=== PATIENT | female | born 1970 | race Caucasian/White ===

== ENCOUNTER → 2020-07-10 15:51 | Outpatient (BNVA) | payer MEDICARE, SELFPAY | PROVIDERS: Family Provider Family Medicine; PCP Family Medicine; Visit Provider Nurse Practitioner | DX: F41.8 Other specified anxiety disorders (principal); M54.16 Radiculopathy, lumbar region; E11.65 Type 2 diabetes mellitus with hyperglycemia; J30.1 Allergic rhinitis due to pollen; I10 Essential (primary) hypertension; H81.09 Meniere's disease, unspecified ear | CPT/HCPCS: 80053; 80061; 83036; 84443; 85025 ==

== ENCOUNTER 2020-09-30 17:42 | Emergency (ER) | payer MEDICARE, SELFPAY ==
[2020-09-30 17:49] VITALS: BP 227/119; PULSE 100; RESP 16; O2SAT 96; BMI 33.5
[2020-09-30 17:59] VITALS: PULSE 91; RESP 16; O2SAT 92
--- NOTE | 2020-09-30 18:04 | XR_ITS ---
WS: [id number] Portable AP upright chest, 09/30/2020 Clinical Data: chest pain. Comparison: PA chest, 03/13/2017. Findings: No nodules, masses or effusions are seen. The heart is normal. The pulmonary vascularity is not increased. No pneumonia or pneumothorax is seen. There are calcified granulomas in both lungs. XR/XR chest 1V portable [id number] Impression: Old granulomatous disease.
--- NOTE | 2020-09-30 18:04 | ECG_ITS ---
[facility] Test Date: 2020-09-30 Pat Name: Annabella Camacho Department: Room: Gender: Female Carpenter Form: : 1949-03-07 Requested By: Malaika Hinojosa I Order Number: [id number] Ami MD: Mayra Godfrey M.D. Measurements Intervals [place] Rate: 96 P: 53 [place]: 176 QRS: 5 QRSD: 104 T: 52 QT: 400 QTc: 506 Interpretive Statements SINUS RHYTHM POSSIBLE LEFT ATRIAL ENLARGEMENT [-0.1mV P WAVE IN V1/V2] Compared to ECG 09/29/2016 20:26:09 T-wave abnormality no longer present Electronically Signed On 09-30-2020 21:39:19 VEIN PUMPER by Mayra Godfrey M.D. [id number] f
[2020-09-30] MEDS: ondansetron 2 mg/ML SDV 2 mL 4 MG IVP (18:45)
[2020-09-30] MEDS: labetalol 5 mg/mL SDV 20mL 10 MG IVP (18:45)
--- NOTE | 2020-09-30 19:13 | PC.PHAR ---
pt states she takes care of her own medications-pt states she saw the dr and the dr wrote her some new rxs she hasnt picked up from the pharmacy yet-nortriptyline 10mg hs-carafate 1g bid-chlorthalidone 25mg daily
[2020-09-30 19:17] LABS: Basophils % 0.5 %; Eosinophils % 0.5 %; Hematocrit 42.5 % (37.0-47.0); Hemoglobin 13.8 g/dL (11.5-15.3); Lymphocytes # 1.2 10^3/uL (0.8-4.8); Lymphocytes % 16.7 %; Mean Corpuscular HGB Conc 32.5 g/dL (30.0-36.0); Mean Corpuscular Hemoglobin 30.3 pg (28.0-34.0); Mean Corpuscular Volume 93.2 fL (81-99); Mean Platelet Volume 10.4 fL (7.4-10.4); Monocytes # 0.4 10^3/uL (0.2-0.9); Monocytes % 5.4 %; Neutrophils # 5.66 10^3/uL (1.8-7.7); Neutrophils % 76.5 %; Nucleated Red Blood Cells % 0 %; Platelet Count 234 10^3/cmm (130-400); Red Blood Count 4.56 10^6/uL (4.1-5.3); Red Cell Distribution Width 13.7 % (12.1-15.1); White Blood Count 7.4 10^3/uL (4.0-10.0)
[2020-09-30 19:42] LABS: Troponin(5th) Baseline 8 ng/L (0-10)
[2020-09-30 19:48] VITALS: BP 164/102; PULSE 92; RESP 18; O2SAT 98
[2020-09-30 19:51] LABS: Alanine Aminotransferase 27 U/L (0-33); Albumin Level 4.4 g/dL (3.5-5.2); Alkaline Phosphatase 105 IU/L (35-105); Anion Gap 15.2 (5-19); Aspartate Amino Transferase 23 U/L (0-32); Blood Urea Nitrogen 12 mg/dL (8-23); Calcium 9.8 mg/dL (8.5-10.5); Carbon Dioxide 27 mmol/L (22-29); Chloride 104 mmol/L (98-107); Globulin 2.1 g/dL (1.3-4.6); Glucose 135 mg/dL (65-115); NT Pro B Type Natriuretic Pept 99 pg/mL (0-125); Osmolality Calculated 296 mOsm/kg (285-295); Potassium 4.2 mmol/L (3.5-5.1); Sodium 142 mmol/L (136-145); Total Bilirubin 1.5 mg/dL (0.15-1.2); Total Protein 6.5 g/dL (6.6-8.7)
--- NOTE | 2020-09-30 20:04 | ECG_ITS ---
[facility] Test Date: 2020-09-30 Pat Name: Annabella Camacho Department: Room: Gender: Female Circular Distributor: : 1949-03-07 Requested By: Malaika Hinojosa I Order Number: [id number] Ami MD: Mayra Godfrey M.D. Measurements Intervals [place] Rate: 91 P: 34 [place]: 156 QRS: 13 QRSD: 100 T: 52 QT: 410 QTc: 505 Interpretive Statements SINUS RHYTHM Compared to ECG 09/30/2020 18:07:00 No significant changes Electronically Signed On 09-30-2020 21:51:34 [employer] DEF[employer] ARTILLERY SENIOR SERGEANT by Mayra Godfrey M.D. [id number]
[2020-09-30 20:49] VITALS: BP 180/92
--- NOTE | 2020-09-30 20:49 | W.ED.NAVMDI ---
HPI - Nausea/Vomiting/Diarrhea General: Chief complaint: Nausea/Vomiting/Diarrhea Stated complaint: DIZZY, N/V Time Seen by Provider: 09/30/20 18:04 Source: patient and EMS Mode of arrival: EMS Limitations: no limitations History of Present Illness: HPI Narrative: Patient is a 71-year-old female with a history of M?ni?re's disease. She has had this she said for several decades. She has occasional attacks of the illness which consist of dizziness, with associated vomiting just like she is feeling today. Symptoms started a few hours ago. She also has a history of hypertension and was given a prescription for a new antihypertensive today as her blood pressure is poorly controlled. She denies any abdominal pain, chest pain, but endorses dizziness. She has vomited several times so far today but no diarrhea. MD elicited complaint: nausea and vomiting Pertinent past history: other (M?ni?re's disease) Onset (ago): hour(s) (4) Description of vomiting: food contents Associated nausea: Yes Associated abdominal pain: No Exacerbating factors: none Relieving factors: none Associated symtoms: Reports dizziness and nausea; Denies altered mental status, anxiety, bloating, change in vision, chest pain, cough, diaphoresis, decreased urine output, dysuria, epistaxis, fatigue, fecal incontinence, fevers/chills, headache(s), anorexia, malaise, myalgias, numbness, palpitations, rash, short of breath, syncope, tenesmus, tinnitus or weakness Review of Systems General: Reports: 10 or more systems reviewed and unremarkable except in HPI and below Const: Denies: fatigue, malaise or diaphoresis Eyes: Denies: change in vision ENMT: Denies: tinnitus or epistaxis Card: Denies: chest pain, palpitations or syncope Resp: Denies: dyspnea, productive cough or non-productive cough GI: Reports: nausea; Denies: bloating or fecal incontinence : Denies: dysuria Musc: Denies: neck pain, back pain or extremity swelling Skin/Breast: Denies: rash, pruritus or erythema Neuro: Reports: dizziness; Denies: headache(s) Psych: Denies: anxiety Endo: Denies: polyuria, polydipsia or tired all the time PFS ED PFSH: Medical History Anxiety with depression Asthma Chronic pain of both knees Dementia Essential (primary) hypertension GERD (gastroesophageal reflux disease) History of breast cancer History of histoplasmosis History of [facility] fever History of sleep apnea over 10 years does not use CPAP History of TIA (transient ischemic attack) History of vertigo Lumbar back pain with radiculopathy affecting lower extremity Meniere disease Seasonal allergic rhinitis due to pollen Type 2 diabetes mellitus with hyperglycemia Surgical History History of back surgery x 3 at mid and lower History of cholecystectomy History of hemorrhoidectomy History of lump of left breast 2000 with radiation History of shoulder surgery Right Family History Other Cancer Dementia Diabetes Heart disease Hypertension Social History Smoking and tobacco status: never smoked Second hand smoke exposure: No Smoking risk assessment/counseling performed?: No Alcohol intake: never Desire information about alcohol rehabilitation?: No Counseling given: No Desire information about substance/drug rehabilitation?: No Counseling given: No Adopted: No Caregiver/support person: No Lives independently: Yes Household members: spouse Housing: House Marital status: Number of children: 4 service: No Current occupational status: retired History of recent travel: No Current gender identity: Female Physical Exam Const: COMMON NORMALS: no acute distress, average body habitus, patient oriented x3, no limitations, healthy appearing, alert and well nourished EXAM LIMITATIONS: no altered mental status HENMT: COMMON NORMALS: normocephalic, atraumatic and moist oral mucous membranes HEAD & SCALP: normocephalic and atraumatic Eye: COMMON NORMALS: Equal, round and reactive pupils present, EOMs intact bilaterally, conjunctivae normal and no scleral icterus CONJUNCTIVA: Yes conjunctivae normal PUPIL: Yes Equal, round and reactive pupils present Neck/C-Spine: COMMON NORMALS: no meningeal signs and no JVD Resp: COMMON NORMALS: normal respiratory effort, No retractions, No use of accessory muscles, clear to auscultation bilaterally and percussion normal AUSCULTATION: clear to auscultation bilaterally PERCUSSION: percussion normal Cardio: COMMON NORMALS: no JVD, regular rate, regular rhythm, S1 normal heart sound present, S2 normal heart sound present, No gallops present (Cardio), No clicks present (Cardio), No murmurs present (Cardio), No rub (Cardio) and Peripheral pulses 2+ throughout RATE: regular rate RHYTHM: regular rhythm HEART SOUNDS: S1 normal heart sound present and S2 normal heart sound present PERIPHERAL PULSES: Peripheral pulses 2+ throughout GI: COMMON NORMALS: Normal to inspection, nondistended, normoactive bowel sounds present, Soft to palpation, non-tender, No hepatosplenomegaly present, no masses and no bruits PALPATION: Yes Soft to palpation and Yes No hepatosplenomegaly present Extremity: COMMON NORMALS: normal to inspection, full ROM, capillary refill normal, no calf tenderness and no pedal edema Neuro: COMMON NORMALS: patient oriented x3 SENSORIUM/ORIENTATION: Yes alert MENINGEAL SIGNS: Yes no meningeal signs Skin: COMMON NORMALS: no rashes or lesions noted, no wounds, turgor normal, no jaundice, no petechiae and no mottling GENERAL SKIN EXAM: no rashes or lesions noted and turgor normal Course Reevaluation(s): Reevaluation #1: She feels much better now. No longer vomiting. She is ready to be discharged home. She was given an additional prescription antihypertensive today. She is advised to monitor her BP closely and to return for any concerns. She voiced understanding and all questions answered. Time: 20:49 Vital Signs: Vital signs: Vital Signs Pulse Rate 92 09/30/20 19:48 Respiratory Rate 18 09/30/20 19:48 Blood Pressure 180/92 09/30/20 20:49 Pulse Oximetry 98 09/30/20 19:48 MDM - Nausea/Vomiting/Diarrhea MDM Narrative: Medical decision making narrative: Patient with nausea and vomiting secondary to a flareup of M?ni?re's disease. She was also noted to have significantly elevated blood pressure which may be secondary to her symptoms. She has poorly controlled hypertension and a new medication for her blood pressure was added to her home medications by her primary care provider today. She is yet to take it. She was given a single dose of intravenous labetalol which brought her blood pressure down to acceptable levels. Her symptoms resolved following her antiemetics and she is discharged home to follow-up with primary care provider. Evaluation was unremarkable. Medical Records: Attestation: I reviewed the patient's medical records. Lab Data: Attestation: I reviewed the patient's lab results. Labs: Lab Results 09/30/20 09/30/20 09/30/20 Range/Units 18:50 18:50 18:50 WBC 7.4 (4.0-10.0) 10^3/ uL RBC 4.56 (4.1-5.3) 10^6/u L Hgb 13.8 (11.5-15.3) g/dL Hct 42.5 (37.0-47.0) % MCV 93.2 (81-99) fL MCH 30.3 (28.0-34.0) pg MCHC 32.5 (30.0-36.0) g/dL RDW 13.7 (12.1-15.1) % Plt Count 234 (130-400) 10^3/c mm MPV 10.4 (7.4-10.4) fL Neut % (Auto) 76.5 % Lymph % (Auto) 16.7 % [place] % (Auto) 5.4 % Eos % (Auto) 0.5 % Baso % (Auto) 0.5 % Neut # (Auto) 5.66 (1.8-7.7) 10^3/u L Lymph # (Auto) 1.2 (0.8-4.8) 10^3/u L [place] # (Auto) 0.4 (0.2-0.9) 10^3/u L Eos # (Auto) 0.0 (0.0-0.8) 10^3/u L Baso # (Auto) 0.0 (0.0-0.1) 10^3/u L Nucleated RBC % (a uto) 0 % Nucleated RBCs # 0.0 /100WBC Sodium 142 (136-145) mmol/L Potassium 4.2 (3.5-5.1) mmol/L Chloride 104 (98-107) mmol/L Carbon Dioxide 27 (22-29) mmol/L Anion Gap 15.2 (5-19) BUN 12 (8-23) mg/dL Creatinine 0.9 (0.5-0.9) mg/dL GFR Calculation Not Reportable Glucose 135 H (65-115) mg/dL Calculated Osmolal ity 296 H (285-295) mOsm/k g Calcium 9.8 (8.5-10.5) mg/dL Total Bilirubin 1.5 H (0.15-1.2) mg/dL AST 23 (0-32) U/L ALT 27 (0-33) U/L Alkaline Phosphata se 105 (35-105) IU/L Troponin T Baselin e 8 (0-10) ng/L Delta Troponin T (0-10) ABS# NT-Pro-B Natriuret Pep 99 (0-125) pg/mL Total Protein 6.5 L (6.6-8.7) g/dL Albumin 4.4 (3.5-5.2) g/dL Globulin 2.1 (1.3-4.6) g/dL 09/30/20 Range/Units 20:56 WBC (4.0-10.0) 10^3/ uL RBC (4.1-5.3) 10^6/u L Hgb (11.5-15.3) g/dL Hct (37.0-47.0) % MCV (81-99) fL MCH (28.0-34.0) pg MCHC (30.0-36.0) g/dL RDW (12.1-15.1) % Plt Count (130-400) 10^3/c mm MPV (7.4-10.4) fL Neut % (Auto) % Lymph % (Auto) % [place] % (Auto) % Eos % (Auto) % Baso % (Auto) % Neut # (Auto) (1.8-7.7) 10^3/u L Lymph # (Auto) (0.8-4.8) 10^3/u L [place] # (Auto) (0.2-0.9) 10^3/u L Eos # (Auto) (0.0-0.8) 10^3/u L Baso # (Auto) (0.0-0.1) 10^3/u L Nucleated RBC % (a uto) % Nucleated RBCs # /100WBC Sodium (136-145) mmol/L Potassium (3.5-5.1) mmol/L Chloride (98-107) mmol/L Carbon Dioxide (22-29) mmol/L Anion Gap (5-19) BUN (8-23) mg/dL Creatinine (0.5-0.9) mg/dL GFR Calculation Glucose (65-115) mg/dL Calculated Osmolal ity (285-295) mOsm/k g Calcium (8.5-10.5) mg/dL Total Bilirubin (0.15-1.2) mg/dL AST (0-32) U/L ALT (0-33) U/L Alkaline Phosphata se (35-105) IU/L Troponin T Baselin e (0-10) ng/L Delta Troponin T 2.63 (0-10) ABS# NT-Pro-B Natriuret Pep (0-125) pg/mL Total Protein (6.6-8.7) g/dL Albumin (3.5-5.2) g/dL Globulin (1.3-4.6) g/dL EKG Data^: EKG 1: Attestation: I personally reviewed and interpreted this EKG as follows: EKG interpretation date: 09/30/20 EKG interpretation time: 18:07 Prior EKG tracings: not available for review Interpretation: Normal sinus rhythm. Heart rate 96 bpm. Normal axis. No ST changes. EKG 2: Attestation: I personally reviewed and interpreted this EKG as follows: EKG interpretation date: 09/30/20 EKG interpretation time: 20:09 Prior EKG tracings: available for review Interpretation: Normal sinus rhythm. Heart rate 91 bpm. Normal axis. No ST changes. Discharge Plan Discharge Patient Disposition: Home Clinical Impression: Hypertensive urgency Meniere disease Qualifiers: Laterality: unspecified laterality Qualified Code(s): H81.09 - Meniere's disease, unspecified ear Condition: Stable Prescriptions: New Zofran 4 mg tablet 4 mg PO Q8H PRN (Reason: nausea and vomiting) Qty: 20 RF: 0 Continued azelastine-fluticasone 137-50 mcg/spray spray,non-aerosol 1 spray INTRANASAL BID Qty: 23 RF: 2 cyclobenzaprine 10 mg tablet 10 mg PO TID Qty: 90 RF: 2 sucralfate [Carafate] 1 gram tablet 1 g PO BID Qty: 60 RF: 2 chlorthalidone 25 mg tablet 25 mg PO DAILY Qty: 30 RF: 2 multivitamin Tablet 1 tab PO DAILY RF: 0 Vitamin B-12 50 mcg Tablet 50 mcg PO DAILY RF: 0 Benadryl 25 mg Capsule 25 mg PO BEDTIME PRN (Reason: unknown) RF: 0 vitamin B complex Tablet 1 tab PO DAILY RF: 0 Voltaren Arthritis Pain 1 % Gel 2 - 4 g TOPICAL PRN RF: 0 melatonin 10 mg Tablet 20 mg PO BEDTIME RF: 0 Vitamin B-12 Drinks See Rx Instructions .ROUTE .COMPLEX RF: 0 biotin 1 cap PO DAILY RF: 0 gabapentin 600 mg tablet 600 mg PO TID@,, RF: 0 Lipitor 20 mg tablet 20 mg PO DAILY@21 RF: 0 citalopram 40 mg tablet 40 mg PO DAILY@10 RF: 0 verapamil 120 mg tablet 120 mg PO DAILY@ RF: 0 nortriptyline 10 mg capsule 10 mg PO BEDTIME RF: 0 buspirone 10 mg tablet 10 mg PO TID@,, RF: 0 Cozaar 100 mg tablet 100 mg PO DAILY@ RF: 0 metformin 500 mg tablet extended release 24 hr 500 mg PO BID@ RF: 0 Discharge Orders: Discharge ED (Routine); Ordered 09/30/20 Ordered By: Malaika Hinojosa Referrals: Dale Pereyra DO [Primary Care Provider] - 1-3 days Discharge Diet: Usual diet Discharge Activity: Increase activity as tolerated Patient Instructions: Meniere Disease (ED), Hypertensive Crisis (ED) Activity Restrictions/Additional Instructions: Return for any new or worsening symptoms. Follow-up with your primary care provider within 3 days. Take your new blood pressure medication that you were prescribed today by your primary care provider and check your blood pressure and record it at least once a day. Coding Level of Care Code ED Biological Plant Operator for Leslie Eisenberg
[2020-09-30 22:08] LABS: Troponin 5 2HR 10.63 ng/L (0-10); Troponin 5 2HR Delta 2.63 ABS# (0-10)
== END 2020-09-30 22:07 | disposition home or self-care (01) ==
PROVIDERS: Emergency Provider Family Medicine; PCP Family Medicine
DX: H81.09 Meniere's disease, unspecified ear (principal); I16.0 Hypertensive urgency; Z79.84 Long term (current) use of oral hypoglycemic drugs; F03.90 Unspecified dementia, unspecified severity, without behavioral disturbance, psychotic disturbance, mood disturbance, and anxiety; I10 Essential (primary) hypertension; Z85.3 Personal history of malignant neoplasm of breast; Z86.73 Personal history of transient ischemic attack (TIA), and cerebral infarction without residual deficits; E11.9 Type 2 diabetes mellitus without complications
CPT/HCPCS: 12345; 36415; 71045; 80053; 81000; 83880; 84484; 85025; 93005; 96374; 96375; 99282; 99284; J2405; J3490

== ENCOUNTER → 2021-02-20 11:56 | Outpatient (BNVA) | payer OTHER, SELFPAY | PROVIDERS: Visit Provider Nurse Practitioner | DX: E11.65 Type 2 diabetes mellitus with hyperglycemia (principal); Z86.010 Personal history of colon polyps; G25.81 Restless legs syndrome; I10 Essential (primary) hypertension; H81.09 Meniere's disease, unspecified ear; M54.16 Radiculopathy, lumbar region; F41.8 Other specified anxiety disorders; J30.1 Allergic rhinitis due to pollen; K21.9 Gastro-esophageal reflux disease without esophagitis | CPT/HCPCS: 80053; 80061; 82043; 83036; 84443 ==

== ENCOUNTER → 2021-06-02 14:04 | Outpatient (BNVA) | payer OTHER, SELFPAY | PROVIDERS: PCP Nurse Practitioner; Visit Provider Nurse Practitioner | DX: Z20.822 Contact with and (suspected) exposure to COVID-19 (principal) | CPT/HCPCS: 87635 ==

== ENCOUNTER → 2021-08-25 15:21 | Outpatient (BNVA) | payer OTHER, SELFPAY | PROVIDERS: PCP Nurse Practitioner; Visit Provider Nurse Practitioner | DX: E11.65 Type 2 diabetes mellitus with hyperglycemia (principal) | CPT/HCPCS: 80053; 80061; 83036; 84443 ==

== ENCOUNTER → 2021-11-17 16:27 | Outpatient (BNVA) | payer MEDICARE, SELFPAY | PROVIDERS: PCP Nurse Practitioner; Visit Provider Nurse Practitioner | DX: E11.65 Type 2 diabetes mellitus with hyperglycemia (principal); F41.8 Other specified anxiety disorders; I10 Essential (primary) hypertension; M54.16 Radiculopathy, lumbar region; J45.909 Unspecified asthma, uncomplicated; H81.09 Meniere's disease, unspecified ear; E87.6 Hypokalemia; G25.81 Restless legs syndrome; K21.9 Gastro-esophageal reflux disease without esophagitis; M25.512 Pain in left shoulder | CPT/HCPCS: 73030; 80053; 83036; 85025 ==

== ENCOUNTER → 2022-10-06 11:33 | Outpatient (BNVA) | payer MEDICARE, SELFPAY | PROVIDERS: PCP Nurse Practitioner; Visit Provider Nurse Practitioner | DX: J45.909 Unspecified asthma, uncomplicated (principal); E11.65 Type 2 diabetes mellitus with hyperglycemia; F41.8 Other specified anxiety disorders; M54.16 Radiculopathy, lumbar region; I10 Essential (primary) hypertension; H81.09 Meniere's disease, unspecified ear; E87.6 Hypokalemia; G25.81 Restless legs syndrome; G47.33 Obstructive sleep apnea (adult) (pediatric) | CPT/HCPCS: 80053; 80061; 81000; 82043; 83036 ==

== ENCOUNTER → 2023-01-11 15:21 | Outpatient (BNVA) | payer MEDICARE, SELFPAY | PROVIDERS: PCP Nurse Practitioner; Visit Provider Nurse Practitioner | DX: I10 Essential (primary) hypertension (principal); M54.16 Radiculopathy, lumbar region; F41.8 Other specified anxiety disorders; E78.2 Mixed hyperlipidemia; J45.909 Unspecified asthma, uncomplicated; E11.65 Type 2 diabetes mellitus with hyperglycemia; H81.09 Meniere's disease, unspecified ear; E87.6 Hypokalemia; G25.81 Restless legs syndrome | CPT/HCPCS: 80053; 80061; 83036; 84443 ==

== ENCOUNTER → 2023-05-05 10:43 | Outpatient (BNVA) | payer MEDICARE, SELFPAY | PROVIDERS: PCP Nurse Practitioner; Visit Provider Nurse Practitioner | DX: E11.65 Type 2 diabetes mellitus with hyperglycemia (principal) | CPT/HCPCS: 80053; 83036 ==

== ENCOUNTER → 2023-08-30 14:25 | Outpatient (BNVA) | payer MEDICARE, SELFPAY | PROVIDERS: PCP Nurse Practitioner; Visit Provider Nurse Practitioner | DX: E11.9 Type 2 diabetes mellitus without complications (principal) | CPT/HCPCS: 80053; 80061; 83036 ==

== ENCOUNTER → 2023-12-13 11:35 | Outpatient (BNVA) | payer MEDICARE, SELFPAY | PROVIDERS: PCP Nurse Practitioner; Visit Provider Nurse Practitioner | DX: E11.9 Type 2 diabetes mellitus without complications (principal) | CPT/HCPCS: 80053; 80061; 82607; 83036 ==

== ENCOUNTER → 2024-02-21 15:46 | Outpatient (BNVA) | payer MEDICARE, SELFPAY | PROVIDERS: PCP Nurse Practitioner; Visit Provider Nurse Practitioner | DX: E11.9 Type 2 diabetes mellitus without complications (principal) | CPT/HCPCS: 80053; 83036 ==

== ENCOUNTER → 2024-05-08 13:31 | Outpatient (BNVA) | payer MEDICARE, SELFPAY | PROVIDERS: PCP Nurse Practitioner; Visit Provider Nurse Practitioner | DX: M25.561 Pain in right knee (principal); M25.461 Effusion, right knee | CPT/HCPCS: 73562 ==

== ENCOUNTER → 2024-12-19 11:26 | Outpatient (BNVA) | payer MEDICARE, SELFPAY | PROVIDERS: PCP Nurse Practitioner; Visit Provider Nurse Practitioner | DX: I10 Essential (primary) hypertension (principal); E11.9 Type 2 diabetes mellitus without complications; E11.65 Type 2 diabetes mellitus with hyperglycemia | CPT/HCPCS: 80053; 80061; 81000; 82607; 83036; 84443 ==